=== PATIENT | male | born 1960 | race Caucasian/White ===

== ENCOUNTER → 2019-02-18 | Outpatient (CLI) | payer MEDICARE, OTHER ==
--- NOTE | 2019-02-18 13:01 | MRI ---
EXAM DESCRIPTION: Lumbar Spine w/o Contrast : Magnetic Resonance Imaging. CLINICAL HISTORY: Polyneuropathy, unspecified COMPARISON: None. TECHNIQUE: Multiplanar, multiple standard sequences, non contrast MRI, lumbar spine. Technically difficult study due to patient motion on some sequences. FINDINGS: L5-S1: The disc space is scanned on axial T2 series 501, image 3. Minimal disc space loss posterior. No disc desiccation. Minimal ligament thickening. No posterior disc bulge. Mild canal narrowing. Mild bilateral foraminal narrowing. L4-L5: Disc desiccation with no disc space loss. Tiny posterior midline disc bulge. Hypertrophic right facet arthrosis and flavum ligament hypertrophy. AP canal diameter 12 mm. Mild to moderate left foraminal narrowing and moderate right foraminal narrowing. L3-L4: Minimal disc desiccation with disc space preserved. No disc bulge. Bilateral mild ligament thickening and hypertrophic right facet arthrosis. AP canal diameter 12 mm. Mild bilateral foraminal narrowing. L2-L3: Minimal desiccation with disc space preserved. No posterior bulge. Minimal bilateral ligament thickening. Minimal effusion in the right facet joint. AP canal diameter 13 mm. Mild narrowing of the left foramen and moderate narrowing of the right foramen. L1-L2: Minimal disc desiccation with disc space preserved. Inferior L1 endplate moderate endplate reactive changes, anterior disc bulge and anterior ridging. Minimal posterior bilateral hypertrophic ligaments. No canal narrowing. Mild to moderate bilateral foraminal narrowing. T12-L1: Minimal disc desiccation with disc space preserved. Moderate endplate reactive changes anterior inferior T12 endplate. Anterior endplate ridging and disc bulging. No posterior bulging. Posterior elements unremarkable. Canal and foramina are patent. Conus terminates just above the disc space. No significant scoliosis. Paravertebral soft tissues negative.. Normal marrow signal in the remaining vertebral bodies and the posterior elements. Vertebral bodies are not compressed at any level. IMPRESSION: 1. Multiple levels of foraminal narrowing, canal narrowing, spondylosis, desiccated discs and disc space loss. No canal or foraminal stenosis at any level. 2. Mild canal and bilateral foraminal narrowing at L5-S1. 3. Moderate canal and foraminal narrowing at L3-L4. 4. Mild narrowing of the canal at L2-L3 and moderate narrowing of the right foramen. Electronically signed by: Tom Johnson MD 02/18/2019 12:59 PM CDT
== END ==
LOC: MRI 09:55
PROVIDERS: ATTEND Nurse Practitioner
DX: G62.9 Polyneuropathy, unspecified (principal); M51.36 Other intervertebral disc degeneration, lumbar region; M51.37 Other intervertebral disc degeneration, lumbosacral region